=== PATIENT | female | born 1965 | race Caucasian/White ===

== ENCOUNTER → 2016-08-14 | Outpatient (CLI) | payer BC ==
[~2016-08-14] MED LIST: ADVIL200 MG PO; CALCIUM CARBO1000 MG PO; LISINOPRIL-HCT1 EACH PO; LISINOPRIL10 MG PO; MOTRIN800 MG PO; ONE DAILY MULT1 EACH PO; VITAMIN D2000 UNIT PO; [UNRECOGNIZED DRUG - OTHER]; vitamin D PO
== END | disposition home or self-care (01) ==
LOC: NUC 08:50
DX: R10.13 Epigastric pain (principal); R11.0 Nausea
CPT/HCPCS: 78227; A9537; J2805